=== PATIENT | male | born 1980 | race Caucasian/White ===

== ENCOUNTER 2016-10-04 02:04 | Emergency (ER) | payer OTHER ==
[2016-10-04] MEDS ORDERED: HALOPERIDOL LACTATE 5 MG/ML 1 ML VIAL IM ONE (02:22)
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
[2016-10-04 12:36] VITALS: BP 109/62; PULSE 95; RESP 15; TEMP 97.9
== END 2016-10-04 12:36 | disposition home or self-care (01) ==
LOC: EC 02:04
DX: F32.9 Major depressive disorder, single episode, unspecified (principal); F10.129 Alcohol abuse with intoxication, unspecified; Z79.899 Other long term (current) drug therapy; F41.9 Anxiety disorder, unspecified; Z87.891 Personal history of nicotine dependence
CPT/HCPCS: 80306; 96372; 99285; J1630

== ENCOUNTER 2019-03-24 07:53 | Emergency (ER) | payer OTHER ==
[2019-03-24 08:01] VITALS: RESP 18; TEMP 98
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
--- NOTE | 2019-03-24 08:57 | CT ---
EXAMINATION TYPE: CT brain josi wo con DATE OF EXAM: 03/24/2019 COMPARISON: 03/20/2016 HISTORY: 38-year-old male ETOH. Pain after fall. CT DLP: 1474.7 mGycm Automated exposure control for dose reduction was used. Technique: Examination of the head was done in axial plane without intravenous contrast. Coronal and sagittal reconstructions performed. CT of the cervical spine was obtained in axial plane without intravenous injection of contrast mater ial. Coronal and sagittal reformatted images were obtained from the axial views for evaluation of f ractures, spinal alignment and canal. FINDINGS: Head: There is no evidence of acute intracranial hemorrhage, acute ischemic changes, mass, mass-effect, or extra-axial fluid collection. There is no effacement of cerebral sulci or basal subarachnoid cister ns. There is no hydrocephalus. There is no midline shift. Jackson-white matter distinction is preserv ed. Mucosal thickening inferior left frontal sinus and anterior left ethmoid air cells. Mastoid air cells are well pneumatized. Visualized orbits and globes show no gross. Cervical spine: 2.4 x 1.1 cm cystic structure in the posterior left mandible may represent a dentigerous cyst. Minima l tonsillar hypertrophy is noted. Reversal of the normal cervical adenosis. Alignment is maintained. No acute fracture of the cervical spine. Scattered minimal endplate spondylosis. No predental space widening or prevertebral soft tissue swelling. Sagittal and coronal reformatted images confirm above findings. COMBINED IMPRESSION: 1. No acute intracranial abnormality seen. 2. No acute fracture malalignment in this spine. 3. 2.4 x 1.1 cm cystic structure posterior left mandible may represent a dentigerous cyst. Consider o utpatient specialist referral.
--- NOTE | 2019-03-24 09:00 | XR ---
EXAMINATION TYPE: XR chest 2V, XR shoulder complete 3 views RT, XR elbow complete 3 views RT DATE OF EXAM: 03/24/2019 COMPARISON: None HISTORY: 38-year-old male with pain after fall TECHNIQUE: AP and lateral views FINDINGS: Chest: The cardiomediastinal silhouette, aorta, and pulmonary vasculature are within normal limits. Mild pat nader density peripheral right midlung. Otherwise, no consolidation, pneumothorax, or pleural effusion seen. Right elbow: No elbow joint effusion. There may be mild posterior soft tissue swelling. No acute fracture, sublux ation, or dislocation. Right shoulder: AC joint is intact. Subacromial space is preserved. Smooth delineation to the greater tuberosity. No acute fracture, subluxation, or dislocation. IMPRESSION: 1. CHEST: Mild patchy right midlung atelectasis versus mild pulmonary contusion. Clinically correlate . Otherwise, no acute cardiopulmonary process. 2. RIGHT ELBOW: No acute osseous abnormality seen. 3. RIGHT SHOULDER: No acute osseous abnormality seen.
[2019-03-24 10:49] VITALS: BP 128/84; PULSE 89
== END 2019-03-24 11:28 | disposition home or self-care (01) ==
LOC: EC 07:53
DX: M25.511 Pain in right shoulder (principal); S50.01XA Contusion of right elbow, initial encounter; Z87.891 Personal history of nicotine dependence; W19.XXXA Unspecified fall, initial encounter; Y92.009 Unspecified place in unspecified non-institutional (private) residence as the place of occurrence of the external cause
CPT/HCPCS: 70450; 71046; 72125; 99284